=== PATIENT | male | born 1975 | race Caucasian/White ===

== ENCOUNTER 2017-09-10 15:44 | Outpatient (CLI) | payer BC ==
--- NOTE | 2017-09-10 16:17 | Diagnostic Imaging Report ---
Indication: Cough Technique: 2 views of the chest Comparison: none. Findings: Lungs and pleural spaces are clear. Heart size is normal. Bones are unremarkable. Impression: No acute process .
== END 2017-09-10 17:44 | disposition home or self-care (01) ==
LOC: RAD 15:44
DX: R05 Cough (principal)
CPT/HCPCS: 71046